=== PATIENT | male | born 2005 | race Caucasian/White ===

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

== ENCOUNTER 2025-01-14 13:04 | Emergency (ER) | payer BC, OTHER ==
[~2025-01-14] VITALS: Ht 190.5 cm; Wt 70.3 kg
[2025-01-14] MEDS ORDERED: PREDNISONE20 M1 PO (15:05)
== END 2025-01-14 15:18 | disposition home or self-care (01) ==
LOC: ED 13:04
DX: M54.41 Lumbago with sciatica, right side (principal)